=== PATIENT | female | born 1970 | race Caucasian/White ===

== ENCOUNTER → 2018-10-01 | Outpatient (CLI) | payer BC ==
[~2018-10-01] MED LIST: CEPHALEXIN500 M1 PO; NO HOME MEDICATIONS; SEPTRA DS 8001 TAB PO
== END ==
LOC: MC.RAD 14:00
DX: Z12.31 Encounter for screening mammogram for malignant neoplasm of breast (principal)

== ENCOUNTER → 2019-10-14 | Outpatient (CLI) | payer BC | LOC: MC.RAD 14:06 | DX: Z12.31 Encounter for screening mammogram for malignant neoplasm of breast (principal) ==

== ENCOUNTER → 2021-04-19 | Outpatient (CLI) | payer BC | LOC: MC.RAD 14:23 | DX: Z12.31 Encounter for screening mammogram for malignant neoplasm of breast (principal) ==

== ENCOUNTER → 2022-05-03 | Outpatient (CLI) | payer BC | LOC: MC.RAD 04-23 08:30 | DX: Z12.31 Encounter for screening mammogram for malignant neoplasm of breast (principal); N64.89 Other specified disorders of breast ==

== ENCOUNTER → 2022-05-07 | Outpatient (CLI) | payer BC | LOC: MC.RAD 09:55 | DX: N64.89 Other specified disorders of breast (principal) ==